=== PATIENT | female | born 2000 | race African-American/Black ===

== ENCOUNTER → 2021-05-16 09:38 | Outpatient (BNVA) | payer OTHER, SELFPAY | PROVIDERS: Visit Provider Nurse Practitioner Family ==

== ENCOUNTER → 2021-08-07 08:50 | Outpatient (BNVA) | payer OTHER, SELFPAY | PROVIDERS: PCP Internal Medicine; Visit Provider Psychiatry & Neurology Neurology | DX: G43.709 Chronic migraine without aura, not intractable, without status migrainosus (principal); G44.219 Episodic tension-type headache, not intractable; I95.1 Orthostatic hypotension | CPT/HCPCS: 64615; J0585 ==

== ENCOUNTER → 2022-02-11 11:20 | Outpatient (BNVA) | payer OTHER, SELFPAY | PROVIDERS: PCP Internal Medicine; Visit Provider Psychiatry & Neurology Neurology | DX: G43.119 Migraine with aura, intractable, without status migrainosus (principal); I95.1 Orthostatic hypotension | CPT/HCPCS: 64615; J0585 ==

== ENCOUNTER 2022-10-23 07:25 | Outpatient (AMB) | payer OTHER, SELFPAY ==
--- NOTE | 2022-10-23 07:27 | MHC.OFFVIS ---
Intake Vital Signs 10/23/22 07:32 Weight 153 lb BP 122/82 Blood Pressure Location Rt brachial Position Sitting Pulse 87 Pulse Source Pulse Oximeter Pulse Oximetry (%) 99 Oxygen Delivery Method Room Air Intake Visit Reasons: botox (b&b)-confirmed Intake Note: Botox Injection Exercise Physiologist Certified Required: No Allergies prochlorperazine [From Compazine] Allergy (Severe, Verified 10/23/22 07:29) Anaphylaxis Medication List - Last Reconciled 10/23/22 by Marquita Dumas MD albuterol sulfate 90 mcg/actuation 2 puffs inhalation Q4H PRN diclofenac potassium 50 mg PO DAILY PRN fludrocortisone 0.2 mg PO DAILY fluoxetine 20 mg PO DAILY 90 days fluoxetine 10 mg PO DAILY 90 days lidocaine-prilocaine 2.5-2.5 % grams topical ONCE metoprolol succinate ER 50 mg PO DAILY ondansetron 4 mg PO Q6H PRN 30 days ondansetron HCl 4 mg PO Q8H PRN 30 days HPI HPI Comments History of Present Illness Details ? 22y/o female comes for treatment of migraines with botox after 8 months. She was unable to come to appointments as she was in school at [employer]. she reports increase in headaches/migraines. she has 20 migraine days a month.while she was recieving botox q 3 months her migraine days decreased to 5-8 a month and intensity was milder. she uses tylenol for abortive tretament she tried nurtec and ubrelvy - both helped but her insurance did not cover she did not respond to sumatriptan or rizatriptan ??? Most frequent reported adverse reactions following injection of botox for chronic migraine include neck pain (9%), headache(5%), eyelid ptosis(4%), migraine(4%), muscular weakness(4%), musculuskeletal stiffness(4%), bronchitis(3%), injection site pain (3%), musculoskeletal pain(3%), myalgia(3%), facial paresis(2%), HTN(2%) and muscle spasms(2%) were discussed in detail. ??? Botulinum toxin typeA 200units Lot no [id number] expiration Apr 2025 was diluted with 4 cc of normal saline . ??? Muscles injected- ??? Frontalis 4 sites ??? Procerus 1 site ??? Electric Meter Inspector- 2 sites ??? Temporalis- 8 sites ??? Occipitalis- 6 sites ??? Cervical paraspinals- 4 sites ??? Trapezius- 6 sites- 5 units eachunits each ??? 5 units each in 31 site ??? Total use- 155units ??? Discarded-45units PFSH Medical History Port-A-Cath in place POTS (postural orthostatic tachycardia syndrome) Surgical History No pertinent past surgical history Social History Alcohol intake: never Patient Tobacco Use Status: Never used Tobacco Physical Exam Vital Signs: Last Vital Signs Pulse 87 10/23/22 07:32 BP 122/82 10/23/22 07:32 Pulse Ox 99 10/23/22 07:32 Oxygen Delivery Method Room Air 10/23/22 07:32 Const General: cooperative and no acute distress Orientation/consciousness: patient oriented x3 Neuro General: patient oriented x3 Cognition (Neuro): normal cognition Psych Appearance: grossly normal Mental Status: mental status grossly normal Speech and movement: Normal speech and movement present Affect: normal affect Attitude: cooperative Office Procedures Botulinum toxin Injection 56993 - Migraine Procedure code (CPT) selection complete Office Meds onabotulinumtoxinA Performing Provider: Marquita Dumas MD Administered by: Marquita Dumas MD on 10/23/22 08:10 Dose Route Admin Location Lot Number Expiration Date NDC Cisco Certified Network Professional 155 unit subcut [id number] 04/24/25 8709-6364-23 ALLERGAN/BOTOX Comments: see HPI Assessment & Plan Assessment & Plan (1) Chronic migraine without aura, not intractable, without status migrainosus: Code(s): G43.709 - Chronic migraine without aura, not intractable, without status migrainosus (2) Episodic tension-type headache, not intractable: Code(s): G44.219 - Episodic tension-type headache, not intractable (3) Orthostatic hypotension: Code(s): I95.1 - Orthostatic hypotension (4) Migraine with aura, intractable, without status migrainosus: Code(s): G43.119 - Migraine with aura, intractable, without status migrainosus Plan Patient tolerated the procedure well she will call back with any side effects I will trial her on amitriptyline 10mg qhs and nurtec 75mg as needed for migraine. Orders: Orders AMB Botulinum toxin Injection Today G43.709 - Chronic migraine without aura, not intractable, without status migrainosus Medications: New amitriptyline 10 mg PO BEDTIME 30 tabs 3RF rimegepant (Nurtec ODT) 75 mg PO Q OTHER DAY PRN 14 tabs 3RF migraine headache Coding Level of Care Code Est Pt Level 1 (17392) Diagnoses Chronic migraine without aura, not intractable, without status migrainosus G43.709 Episodic tension-type headache, not intractable G44.219 Orthostatic hypotension I95.1 Migraine with aura, intractable, without status migrainosus G43.119 CPT Codes Botox Injection - Botox 3: 96820 - Migraine ([id number])
[2022-10-23 07:32] VITALS: BP 122/82; PULSE 87; O2SAT 99
== END 2022-10-23 08:09 | disposition home or self-care (01) ==
PROVIDERS: Visit Provider Psychiatry & Neurology Neurology
DX: G43.709 Chronic migraine without aura, not intractable, without status migrainosus (principal); G44.219 Episodic tension-type headache, not intractable; I95.1 Orthostatic hypotension; G43.119 Migraine with aura, intractable, without status migrainosus
CPT/HCPCS: 64615

== ENCOUNTER → 2022-10-23 07:25 | Outpatient (BNVA) | payer OTHER, SELFPAY | PROVIDERS: Visit Provider Psychiatry & Neurology Neurology | DX: G43.719 Chronic migraine without aura, intractable, without status migrainosus (principal); G44.219 Episodic tension-type headache, not intractable; I95.1 Orthostatic hypotension | CPT/HCPCS: 64615; 99211; J0585 ==

== ENCOUNTER 2023-02-10 08:58 | Outpatient (AMB) | payer OTHER, SELFPAY ==
--- NOTE | 2023-02-10 09:02 | A.OFFVIS_ITS ---
Intake Vital Signs 02/10/23 09:04 Height 5 ft 3 in Weight 155 lb BMI 27.5 BP 118/70 Blood Pressure Location Rt brachial Position Sitting Respiration 17 Pulse 90 Pulse Source Pulse Oximeter Pulse Oximetry (%) 97 Oxygen Delivery Method Room Air Intake Visit Reasons: Follow up Intake Note: Pt presents to the office for a 3 month follow up for migraines. Pt reports she was in the ED last week for a really bad migraine. She was given Toradol and an antiemetic and advised to follow up with her neurologist. Trauma Nurse Required: No Allergies prochlorperazine [From Compazine] Allergy (Severe, Verified 02/10/23 09:10) Anaphylaxis Medication List - Last Reconciled 02/10/23 by Marquita Dumas MD albuterol sulfate 90 mcg/actuation 2 puffs inhalation Q4H PRN fludrocortisone 0.2 mg PO DAILY fluoxetine 20 mg PO DAILY 90 days fluoxetine 10 mg PO DAILY 90 days lidocaine-prilocaine 2.5-2.5 % grams topical ONCE metoprolol succinate ER 50 mg PO DAILY ondansetron 4 mg PO Q6H PRN 30 days ondansetron HCl 4 mg PO Q8H PRN 30 days rimegepant (Nurtec ODT) 75 mg PO Q OTHER DAY PRN topiramate 25 mg PO DAILY HPI HPI Comments History of Present Illness Details ? 22y/o female comes for treatment of migraines with botox after 3 months. No migraines for 2 months fater botox but for past 1 month she has been having daily migraines. Nurtec takes the egde off but does not go away . while she was recieving botox q 3 months her migraine days decreased to 5-8 a month and intensity was milder. she uses tylenol for abortive tretament. she did not respond to sumatriptan or rizatriptan she was in ER for episodes of syncope from POTS - Dr. Mak ( [facility]) she also reports new numbness in her legs bilaterally for past 1 week. she always had tingling but feel its worse.she denies back pain . ??? Most frequent reported adverse reactions following injection of botox for chronic migraine include neck pain (9%), headache(5%), eyelid ptosis(4%), migraine(4%), muscular weakness(4%), musculuskeletal stiffness(4%), bronchitis (3%), injection site pain (3%), musculoskeletal pain(3%), myalgia(3%), facial paresis(2%), HTN(2%) and muscle spasms(2%) were discussed in detail. ??? Botulinum toxin typeA 200units Lot no [id number] expiration Apr 2025 was diluted with 4 cc of normal saline . ??? Muscles injected- ??? Frontalis 4 sites ??? Procerus 1 site ??? Ampoule Examiner- 2 sites ??? Temporalis- 8 sites ??? Occipitalis- 6 sites ??? Cervical paraspinals- 4 sites ??? Trapezius- 6 sites- 5 units eachunits each ??? 5 units each in 31 site ??? Total use- 155units ??? Discarded-45units PFSH Medical History POTS (postural orthostatic tachycardia syndrome) Port-A-Cath in place Surgical History No pertinent past surgical history Social History Alcohol intake: never Patient Tobacco Use Status: Never used Tobacco Physical Exam Vital Signs: Last Vital Signs Pulse 90 02/10/23 09:04 Resp 17 02/10/23 09:04 BP 118/70 02/10/23 09:04 Pulse Ox 97 02/10/23 09:04 Oxygen Delivery Method Room Air 02/10/23 09:04 BMI result Body Mass Index 27.5 Const General: cooperative and no acute distress Orientation/consciousness: patient oriented x3 Neuro General: patient oriented x3 Cognition (Neuro): normal cognition Psych Appearance: grossly normal Mental Status: mental status grossly normal Speech and movement: Normal speech and movement present Affect: normal affect Attitude: cooperative Office Procedures Botulinum toxin Injection 78850 - Migraine Procedure code (CPT) selection complete Office Meds onabotulinumtoxinA 200 unit solution for injection Performing Provider: Marquita Dumas MD Performing Location: [facility] [place] [facility] Administered by: Marquita Dumas MD on 02/10/23 09:45 Dose Route Admin Location Dispensed Lot Number Expiration Date [facility] Neurodiagnostic Tech 155 unit subcut 200 units [id number] 04/24/25 0801-8323-91 ALLERGAN/BOTOX Comments: see HPI Assessment & Plan Assessment & Plan (1) Chronic migraine without aura, not intractable, without status migrainosus: Code(s): G43.709 - Chronic migraine without aura, not intractable, without status migrainosus (2) Episodic tension-type headache, not intractable: Code(s): G44.219 - Episodic tension-type headache, not intractable (3) Orthostatic hypotension: Code(s): I95.1 - Orthostatic hypotension (4) Migraine with aura, intractable, without status migrainosus: Code(s): G43.119 - Migraine with aura, intractable, without status migrainosus Plan Patient tolerated the procedure well she will call back with any side effects nurtec 75mg as needed for migraine. Orders: Orders AMB Botulinum toxin Injection Today G43.709 - Chronic migraine without aura, not intractable, without status migrainosus Coding Level of Care Code Est Pt Level 1 (21915) Diagnoses Chronic migraine without aura, not intractable, without status migrainosus G43.709 Episodic tension-type headache, not intractable G44.219 Orthostatic hypotension I95.1 Migraine with aura, intractable, without status migrainosus G43.119 CPT Codes Botox Injection - Botox 3: 16340 - Migraine ([id number])
[2023-02-10 09:04] VITALS: BP 118/70; PULSE 90; RESP 17; O2SAT 97; BMI 27.5
== END 2023-02-10 09:34 | disposition home or self-care (01) ==
PROVIDERS: PCP Internal Medicine; Visit Provider Psychiatry & Neurology Neurology
DX: G43.709 Chronic migraine without aura, not intractable, without status migrainosus (principal)
CPT/HCPCS: 64615

== ENCOUNTER → 2023-02-10 08:58 | Outpatient (BNVA) | payer OTHER, SELFPAY | PROVIDERS: PCP Internal Medicine; Visit Provider Psychiatry & Neurology Neurology | DX: G43.709 Chronic migraine without aura, not intractable, without status migrainosus (principal); G43.119 Migraine with aura, intractable, without status migrainosus; G44.219 Episodic tension-type headache, not intractable; I95.1 Orthostatic hypotension | CPT/HCPCS: 64615; 99211; J0585 ==

== ENCOUNTER 2023-08-27 07:54 | Outpatient (AMB) | payer OTHER, SELFPAY ==
--- NOTE | 2023-08-27 07:59 | MHC.OFFVIS ---
Vital Signs 08/27/23 08:00 Height 5 ft 3 in Weight 156 lb 6 oz BMI 27.7 BP 128/70 Blood Pressure Location Rt brachial Position Sitting Respiration 16 Pulse 87 Pulse Source Pulse Oximeter Pulse Oximetry (%) 100 Oxygen Delivery Method Room Air Intake Visit Reasons: Botox - Confirmed Intake Note: Pt presents to the office for Botox injections. Bench Patternmaker Metal Required: No Allergies prochlorperazine [From Compazine] Allergy (Severe, Verified 08/27/23 07:59) Anaphylaxis Medication List - Last Reconciled 08/27/23 by Marquita Dumas MD albuterol sulfate 90 mcg/actuation 2 puffs inhalation Q4H PRN fludrocortisone 0.2 mg PO DAILY fluoxetine 20 mg PO DAILY 90 days fluoxetine 10 mg PO DAILY 90 days gabapentin 300 mg PO TID lidocaine-prilocaine 2.5-2.5 % grams topical ONCE metoprolol succinate ER 50 mg PO DAILY ondansetron 4 mg PO Q6H PRN 30 days ondansetron HCl 4 mg PO Q8H PRN 30 days rimegepant (Nurtec ODT) 75 mg PO Q OTHER DAY PRN topiramate 25 mg PO DAILY HPI Comments Details: ? 23y/o female comes for treatment of migraines with botox after 6 months. she had issues with billing so missed her last appointment. she has been doing well with botox.Her headaches decreased to 0-1/month for 3 mths after botox. ??? Most frequent reported adverse reactions following injection of botox for chronic migraine include neck pain (9%), headache(5%), eyelid ptosis(4%), migraine(4%), muscular weakness(4%), musculuskeletal stiffness(4%), bronchitis(3%), injection site pain (3%), musculoskeletal pain(3%), myalgia(3%), facial paresis(2%), HTN(2%) and muscle spasms(2%) were discussed in detail. ??? Botulinum toxin typeA 200units Lot no [id number] expiration August 2025 was diluted with 4 cc of normal saline . ??? Muscles injected- ??? Frontalis 4 sites ??? Procerus 1 site ??? Poacher Wringer Operator- 2 sites ??? Temporalis- 8 sites ??? Occipitalis- 6 sites ??? Cervical paraspinals- 4 sites ??? Trapezius- 6 sites- 5 units eachunits each ??? 5 units each in 31 site ??? Total use- 155units ??? Discarded-45units PFSH Medical History POTS (postural orthostatic tachycardia syndrome) Port-A-Cath in place Surgical History No pertinent past surgical history Social History Alcohol intake: never Patient Tobacco Use Status: Never used Tobacco Physical Exam Vital Signs: Last Vital Signs Pulse 87 08/27/23 08:00 Resp 16 08/27/23 08:00 BP 128/70 08/27/23 08:00 Pulse Ox 100 08/27/23 08:00 Oxygen Delivery Method Room Air 08/27/23 08:00 BMI result Body Mass Index 27.7 Const General: cooperative and no acute distress Orientation/consciousness: patient oriented x3 Neuro General: patient oriented x3 Cognition (Neuro): normal cognition Psych Appearance: grossly normal Mental Status: mental status grossly normal Speech and movement: Normal speech and movement present Affect: normal affect Attitude: cooperative Office Procedures Botulinum toxin Injection 17770 - Migraine Procedure code (CPT) selection complete Office Meds onabotulinumtoxinA 200 unit solution for injection Performing Provider: Marquita Dumas MD [place]forming [place] [facility] [place] [facility] Administered by: Marquita Dumas MD on 08/27/23 08:27 Dose Route Admin Location Dispensed Lot Number Expiration Date [facility] Cuff Presser 155 unit subcut 200 units [id number] 08/22/25 9848-8280-24 ALLERGAN/BOTOX Comments: see HPI Assessment & Plan Assessment & Plan (1) Chronic migraine without aura, not intractable, without status migrainosus: Code(s): G43.709 - Chronic migraine without aura, not intractable, without status migrainosus Category: Medical (2) Episodic tension-type headache, not intractable: Code(s): G44.219 - Episodic tension-type headache, not intractable Category: Medical (3) Orthostatic hypotension: Code(s): I95.1 - Orthostatic hypotension Category: Medical (4) Migraine with aura, intractable, without status migrainosus: Code(s): G43.119 - Migraine with aura, intractable, without status migrainosus Category: Medical Plan Patient tolerated the procedure well she will call back with any side effects nurtec 75mg as needed for migraine. Orders: Orders AMB Botulinum toxin Injection Today G43.709 - Chronic migraine without aura, not intractable, without status migrainosus Medications: New onabotulinumtoxinA 200 units subcut ONCE 1 ea 0RF migraine G43.709 - Chronic migraine without aura, not intractable, without status migrainosus Coding Level of Care Code Est Pt Level 1 (84252) Diagnoses Chronic migraine without aura, not intractable, without status migrainosus G43.709 Episodic tension-type headache, not intractable G44.219 Orthostatic hypotension I95.1 Migraine with aura, intractable, without status migrainosus G43.119 CPT Codes Botox Injection - Botox 3: 67595 - Migraine ([id number])
[2023-08-27 08:00] VITALS: BP 128/70; PULSE 87; RESP 16; O2SAT 100; BMI 27.7
== END 2023-08-27 08:24 | disposition home or self-care (01) ==
PROVIDERS: PCP Internal Medicine; Visit Provider Psychiatry & Neurology Neurology
DX: G43.E19 Chronic migraine with aura, intractable, without status migrainosus (principal)
CPT/HCPCS: 64615

== ENCOUNTER → 2023-08-27 07:54 | Outpatient (BNVA) | payer OTHER, SELFPAY | PROVIDERS: PCP Internal Medicine; Visit Provider Psychiatry & Neurology Neurology | DX: G43.709 Chronic migraine without aura, not intractable, without status migrainosus (principal); G44.219 Episodic tension-type headache, not intractable; I95.1 Orthostatic hypotension | CPT/HCPCS: 64615; 99211; J0585 ==

== ENCOUNTER 2024-02-04 13:25 | Outpatient (AMB) | payer OTHER, SELFPAY ==
--- NOTE | 2024-02-04 13:30 | A.OFFVIS_ITS ---
Intake Visit Reasons: Botox Intake Note: Patient presents for botox Allergies prochlorperazine [From Compazine] Allergy (Severe, Verified 02/04/24 13:30) Anaphylaxis Medication List - Last Reconciled 02/04/24 by Marquita Dumas MD albuterol sulfate 90 mcg/actuation 2 puffs inhalation Q4H PRN dextroamphetamine-amphetamine 5 mg (Adderall) 5 mg PO DAILY fludrocortisone 0.2 mg PO DAILY fluoxetine 20 mg PO DAILY 90 days fluoxetine 10 mg PO DAILY 90 days gabapentin 300 mg PO TID lidocaine-prilocaine 2.5-2.5 % grams topical ONCE metoprolol succinate ER 50 mg PO DAILY ondansetron 4 mg PO Q6H PRN 30 days ondansetron HCl 4 mg PO Q8H PRN 30 days rimegepant (Nurtec ODT) 75 mg PO Q OTHER DAY PRN topiramate 25 mg PO DAILY HPI Comments Details: ? 23y/o female comes for treatment of migraines with botox after 6 months. she had issues with billing so missed her last appointment. she has been doing well with botox.Her headaches decreased to 0-1/month for 3 mths after botox. ??? Most frequent reported adverse reactions following injection of botox for chronic migraine include neck pain (9%), headache(5%), eyelid ptosis(4%), migraine(4%), muscular weakness(4%), musculuskeletal stiffness(4%), bronchitis(3%), injection site pain (3%), musculoskeletal pain(3%), myalgia(3%), facial paresis(2%), HTN(2%) and muscle spasms(2%) were discussed in detail. ??? Botulinum toxin typeA 200units Lot no [id number] expiration May 2026 was diluted with 4 cc of normal saline . ??? Muscles injected- ??? Frontalis 4 sites ??? Procerus 1 site ??? Bread Baker- 2 sites ??? Temporalis- 8 sites ??? Occipitalis- 6 sites ??? Cervical paraspinals- 4 sites ??? Trapezius- 6 sites- 5 units eachunits each ??? 5 units each in 31 site ??? Total use- 155units ??? Discarded-45units [facility] Medical History POTS (postural orthostatic tachycardia syndrome) Port-A-Cath in place Surgical History No pertinent past surgical history Social History Alcohol intake: never Patient Tobacco Use Status: Never used Tobacco Physical Exam Const General: cooperative and no acute distress Orientation/consciousness: patient oriented x3 Neuro General: patient oriented x3 Cognition (Neuro): normal cognition Psych Appearance: grossly normal Mental Status: mental status grossly normal Speech and movement: Normal speech and movement present Affect: normal affect Attitude: cooperative Office Procedures Botulinum toxin Injection 09692 - Migraine Procedure code (CPT) selection complete Office Meds onabotulinumtoxinA 200 unit solution for injection Performing Provider: Marquita Dumas MD Performing Location: [facility] [place] [facility] Administered by: Marquita Dumas MD on 02/04/24 15:25 Dose Route Admin Location Dispensed Lot Number Expiration Date [facility] Clinical Audiologist 155 unit subcut 200 units [id number] 05/22/26 8108-8958-32 ALLERGAN/BOTOX Comments: see hpi Assessment & Plan Assessment & Plan (1) Chronic migraine without aura, not intractable, without status migrainosus: Code(s): G43.709 - Chronic migraine without aura, not intractable, without status migrainosus Category: Medical (2) Episodic tension-type headache, not intractable: Code(s): G44.219 - Episodic tension-type headache, not intractable Category: Medical (3) Orthostatic hypotension: Code(s): I95.1 - Orthostatic hypotension Category: Medical (4) Migraine with aura, intractable, without status migrainosus: Code(s): G43.119 - Migraine with aura, intractable, without status migrainosus Category: Medical Plan Patient tolerated the procedure well she will call back with any side effects nurtec 75mg as needed for migraine. Orders: Orders AMB Botulinum toxin Injection Today G43.119 - Migraine with aura, intractable, without status migrainosus Medications: New onabotulinumtoxinA 200 units subcut ONCE 1 ea 0RF Migraine G43.119 - Migraine with aura, intractable, without status migrainosus Coding Level of Care Code Est Pt Level 1 (96687) Diagnoses Chronic migraine without aura, not intractable, without status migrainosus G43.709 Episodic tension-type headache, not intractable G44.219 Orthostatic hypotension I95.1 Migraine with aura, intractable, without status migrainosus G43.119 CPT Codes Botox Injection - Botox 3: 25949 - Migraine ([id number])
== END 2024-02-04 14:01 | disposition home or self-care (01) ==
PROVIDERS: PCP Internal Medicine; Visit Provider Psychiatry & Neurology Neurology
DX: G43.E09 Chronic migraine with aura, not intractable, without status migrainosus (principal)
CPT/HCPCS: 64615

== ENCOUNTER → 2024-02-04 13:25 | Outpatient (BNVA) | payer OTHER, SELFPAY | PROVIDERS: PCP Internal Medicine; Visit Provider Psychiatry & Neurology Neurology | DX: G43.E19 Chronic migraine with aura, intractable, without status migrainosus (principal); G44.219 Episodic tension-type headache, not intractable; I95.1 Orthostatic hypotension | CPT/HCPCS: 64615; 99211; J0585 ==

== ENCOUNTER 2024-06-01 08:21 | Outpatient (AMB) | payer OTHER, SELFPAY ==
--- NOTE | 2024-06-01 08:21 | A.OFFVIS_ITS ---
Vital Signs 06/01/24 08:22 Height 5 ft 3 in Weight 143 lb BMI 25.3 Pulse 82 Pulse Source Pulse Oximeter Pulse Oximetry (%) 97 Oxygen Delivery Method Room Air Intake Visit Reasons: Botox Intake Note: patient here for botox injection. Practice supplied Allergies prochlorperazine [From Compazine] Allergy (Severe, Verified 06/01/24 08:25) Anaphylaxis Medication List - Last Reconciled 06/01/24 by Marquita Dumas MD albuterol sulfate 90 mcg/actuation 2 puffs inhalation Q4H PRN dextroamphetamine-amphetamine 5 mg (Adderall) 5 mg PO DAILY fludrocortisone 0.2 mg PO DAILY fluoxetine 20 mg PO DAILY 90 days fluoxetine 10 mg PO DAILY 90 days gabapentin 300 mg PO TID lidocaine-prilocaine 2.5-2.5 % grams topical ONCE metoprolol succinate ER 50 mg PO DAILY ondansetron 4 mg PO Q6H PRN 30 days ondansetron HCl 4 mg PO Q8H PRN 30 days rimegepant (Nurtec ODT) 75 mg PO Q OTHER DAY PRN topiramate 25 mg PO DAILY HPI Comments Details: ? 24y/o female comes for treatment of migraines with botox after 6 months. she had issues with billing so missed her last appointment. she has been doing well with botox.Her headaches decreased to 0-1/month for 3 mths after botox. ??? Most frequent reported adverse reactions following injection of botox for chronic migraine include neck pain (9%), headache(5%), eyelid ptosis(4%), migraine(4%), muscular weakness(4%), musculuskeletal stiffness(4%), bronchitis(3%), injection site pain (3%), musculoskeletal pain(3%), myalgia(3%), facial paresis(2%), HTN(2%) and muscle spasms(2%) were discussed in detail. ??? Botulinum toxin typeA 200units Lot no [id number] expiration June 2026 was diluted with 4 cc of normal saline . ??? Muscles injected- ??? Frontalis 4 sites ??? Procerus 1 site ??? Clip On Sunglasses Assembler- 2 sites ??? Temporalis- 8 sites ??? Occipitalis- 6 sites ??? Cervical paraspinals- 4 sites ??? Trapezius- 6 sites- 5 units eachunits each ??? 5 units each in 31 site ??? Total use- 155units ??? Discarded-45units PFSH Medical History POTS (postural orthostatic tachycardia syndrome) Port-A-Cath in place Surgical History No pertinent past surgical history Social History Alcohol intake: never Patient Tobacco Use Status: Never used Tobacco Physical Exam Vital Signs: Last Vital Signs Pulse 82 06/01/24 08:22 Pulse Ox 97 06/01/24 08:22 Oxygen Delivery Method Room Air 06/01/24 08:22 BMI result Body Mass Index 25.3 Const General: cooperative and no acute distress Orientation/consciousness: patient oriented x3 Neuro General: patient oriented x3 Cognition (Neuro): normal cognition Psych Appearance: grossly normal Mental Status: mental status grossly normal Speech and movement: Normal speech and movement present Affect: normal affect Attitude: cooperative Office Procedures Botulinum toxin Injection 57276 - Migraine Procedure code (CPT) selection complete Office Meds onabotulinumtoxinA 200 unit solution for injection Performing Provider: Marquita Dumas MD Performing [place] [facility] [place] [facility] Administered by: Marquita Dumas MD on 06/01/24 08:47 Dose Route Admin Location Dispensed Lot Number Expiration Date [facility] Car Construction Superintendent 155 unit subcut 200 units [id number] ALLERGAN/BOTOX Comments: see HPI Assessment & Plan Assessment & Plan (1) Chronic migraine without aura, not intractable, without status migrainosus: Code(s): G43.709 - Chronic migraine without aura, not intractable, without status migrainosus Category: Medical (2) Episodic tension-type headache, not intractable: Code(s): G44.219 - Episodic tension-type headache, not intractable Category: Medical (3) Orthostatic hypotension: Code(s): I95.1 - Orthostatic hypotension Category: Medical (4) Migraine with aura, intractable, without status migrainosus: Code(s): G43.119 - Migraine with aura, intractable, without status migrainosus Category: Medical Plan Patient tolerated the procedure well she will call back with any side effects nurtec 75mg as needed for migraine. Orders: Orders AMB Botulinum toxin Injection Today G43.709 - Chronic migraine without aura, not intractable, without status migrainosus Medications: New onabotulinumtoxinA 200 units subcut ONCE 1 ea 0RF Migraines G43.709 - Chronic migraine without aura, not intractable, without status migrainosus Refilled ondansetron 4 mg PO Q6H 30 days PRN 30 tabs 4RF for nausea/vomiting Coding Level of Care Code Est Pt Level 1 (69721) Diagnoses Chronic migraine without aura, not intractable, without status migrainosus G43.709 Episodic tension-type headache, not intractable G44.219 Orthostatic hypotension I95.1 Migraine with aura, intractable, without status migrainosus G43.119 CPT Codes Botox Injection - Botox 3: 13407 - Migraine ([id number])
[2024-06-01 08:22] VITALS: PULSE 82; O2SAT 97; BMI 25.3
--- OUTSIDE RECORDS SUMMARY | 2024-06-01 08:54 | XMS_ITS | Clinical Summary ---
Author Organization [facility] Address [address] [place] [address] Care Team Providers Care Mixer Driver Name Role Phone Unavailable Primary Care Provider Unavailabl e Source Comments PLEASE NOTE, if this patient is a minor, it may be UNLAWFUL to discuss sensitive information that is contained in these records (such as FAMILY PLANNING, MENTAL HEALTH or SUBSTANCE ABUSE) with the minor patient's parent or other person without the patient's specific authorization.[facility] Immunizations Name Administration Dates Next Due Moderna COVID-19 Vaccine, re d cap blue label, 12+ Primary Series 07/04/2020,06/06/2020 Social History Tobacco Use Types Packs/Day Years Used Date Smoking Tobacco: Never Assessed Social Connections Answer Date Recorded Social Connections and Isolation 0 06/06/2020 Financial Resource Strain Answer Date R ecorded Financial Resource Strain 0 2020 Stress Answer Date Recorded Stress 0 06/06/2020 Physical Activity Answer Date Recorded Physical Activity 0 06/06/2020 Food Insecurity Answer Date Recorded Food 0 06/06/2020 Transportation Needs Answer Date Record ed Transportation 0 06/06/2020 Housing Stability Answer Date Recorded Housing 0 06/06/2020 Safety and Environment Answer Date Cody rded Safety 0 06/06/2020 Utilities Answer Date Recorded Utilities 0 06/06/2020 Employment Answer Date Recorded Employment 0 06/06/2020 Comments Unknown Sex and Gender Information Value Date Recorded Sex Assigned at Not on file Legal Sex Female 11:46 AM PST Gender Identity Not on file Sexual Orientation Not on file Plan of Treatment Health Maintenance Due Date Last Done Comments HPV Screening 2000 Hepatitis C Screening 2000 Pap + HPV 2000 Tobacco Screening 2000 Chlamydia Screening 2013 Gonorrhea Screening 2013 Imm-HPV (2 - 2-dose series) 01/22/2014 07/22/2013 HIV Screening 2015 Relationship Safety Screening/Counseling 2015 Annual Preventive Care Visit 2018 Hypertension Screening (#1) 2018 Cervical Cancer Screening 2021 Pap Smear 2021 Imm-DTaP/Tdap/Td (7 - Td or Tdap) 06/24/2021 06/25/2011, 06/13/2004, 10/05/2001, Additional history exists [id number] ( season) 2023 021, 06/06/2020 Imm-Influenza (#1) 2023 01/31/2020, 1 , 04/23/2013, Additional history exists Alcohol and Drug Screen 03/24/2024 Depression Annual Screen 03/24/2024 Imm-Hepatitis B Completed 01/20/2001, 04/24, 2000 Imm-Varicella Completed 07/17/2009, 04/06/2001 Cervical Ablation/Cold-Knife Conization Discontinued Cervical Cryotherapy Discontinued Colposcopy Discontinued Endometrial Biopsy Discontinued Excision/Leep Discontinued HPV Genotyping Discontinued Vaginal Pap Discontinued Vulvoscopy Discontinued Insurance [facility] ([employer] [place]) Member Subscriber Plan / Payer (Ef fective 2020-Present) Name:Aye Hill Relation to Subscriber:Self Name:Aye Hill Payer ID:[id number] Type:Indemnity Address: [address] [place] [address]
--- OUTSIDE RECORDS SUMMARY | 2024-06-01 08:54 | XMS_ITS | Referral Summary ---
Author Organization [facility] Address [address] [place] [address] Care Team Providers Care Home Comfort Advisor Name Role Phone Jamarcus Elizabeth MD Primary Care Provider +1 [phone] Allergies Active Allergy Reactions Criticality Noted Date Comments Prochlorperazine Respiratory Distress High 2 Medications albuterol (PROAIR HFA,VENTOLIN HFA) 90 mcg inhaler Inhale 2 puffs by mouth every 4 hours as needed. 2 Active amoxicillin-pot clavulanate (AUGMENTIN) 400-57 mg/5 mL suspension SMARTSI Milliliter(s) By Mouth Every 12 Hours 2 Active butalbital-acetami nophen-caffeine (FIORICET) 50-325-40 mg tablet Take 1 tablet by mouth daily as needed. 1 Active diclofenac (CATAFLAM) 50 mg tablet Take 50 mg by mouth every 8 hours as needed. 2 Active fludrocortisone (FLORINEF) 0.1 mg tablet Take 0.2 mg by mouth once a day. 2 Active FLUoxetine (PROzac) 20 mg capsule Take 30 mg by mouth. Active gabapentin (NEURONTIN) 100 mg capsule Take 100 mg by mouth 3 times a day. 2 Active hydrOXYzine HCL (ATARAX) 10 mg tablet Take 10 mg by mouth every 8 hours as needed. 1 Active lidocaine-prilocai ne (EMLA) cream Apply topically to the affected area once. 2 Active methylPREDNISolone (MEDROL DOSEPACK) 4 mg tablet TAKE 6 TABLETS ON DAY 1 DIRECTED ON PACKAGE AND DECREASE BY 1 TAB EACH DAY FOR A TOTAL OF 6 DAYS 2 Active ondansetron (ZOFRAN ODT) 4 mg disintegrating tablet Dissolve 4 mg in the mouth every 8 hours as needed. 2 Active topiramate (TOPAMAX) 100 mg tablet Take 100 mg by mouth. 1 Active Social History Tobacco Use Types Packs/Day Years Used Date Smoking Tobacco: Never Smokeless Tobacco: Never Alcohol Use Standard Drinks/Week Comments Yes 2 (1 standard drink = 0.6 oz pur e alcohol) Comments Unknown Sex and Gender Information Value Date Recorded Sex Assigned at Female 10/07/2021 5:08 PM EDT Legal Sex Female 4:27 PM EDT Gender Identity Female 10/07/2021 5:08 PM EDT Sexual Orientation Straight 10/07/2021 5: 08 PM EDT Last Filed Vital Signs Vital Sign Reading Time Taken Comments Blood Pressure 106/69 10/08/2021 2:50 PM EDT Pulse 77 10/08/2021 2:47 PM EDT Temperature - - Respiratory Rate 16 10/08/2021 2:47 PM EDT Oxygen Saturation 100% 10/08/2021 2:47 PM EDT Inhaled Oxygen Concentration - - Weight 65.8 kg (145 lb) 10/08/2021 2:47 PM EDT Height 160 cm (5' 3 ) 10/08/2021 2:47 PM EDT Body Mass Index 25.69 10/08/2021 2:47 PM EDT Plan of Treatment Not on file Insurance [facility] Care Teams Home Comfort Advisor Relationship Specialty Start Date End Date Jamarcus Elizabeth MD [address] [place] [id number] PCP - General 08/29/21
--- OUTSIDE RECORDS SUMMARY | 2024-06-01 08:54 | XMS_ITS | Clinical Summary ---
Author Organization Patient Business [facility] Address [address] [place] [address] Care Team Providers Care Senior Cost Estimator Name Role Phone Jamarcus Elizabeth MD Primary Care Provider +1 [phone] Medications metoprolol succinate (TOPROL-XL) 50 mg 24 hr tablet TAKE 1 TABLET BY MOUTH EVERY DAY 90 tablet 05/31/2024 Active Encounters Date Type Department Care Team Description 06/01/2024 Telephone Internal Medicine - [facility] [address] [place], [place] [phone] Jamarcus Elizabeth MD provider call back 05/31/2024 Telephone Internal Medicine - [facility] [address] [place], [place] [phone] Jamarcus Elizabeth MD Labs Only from Last 3 Months Immunizations Name Administration Dates Next Due Moderna SARS-CoV-2 COVID-19, mRNA, LNP-S, preservative free 07/04/2020,06/06/2020 Medical History Medical History Date Comments Unspecified asthma(493.90) DX:Un specified asthma(493.90) Acute pharyngitis DX:Acute phary ngitis Acute upper respiratory infe ctions of unspecified site DX:Acute upper respiratory i nfections of unspecified site Twin, mate liveborn, born in hospital, delivered without mention of delivery DX:Twin, mate liveborn, born in hospital, delivered without mention of delivery Anxiety and depression 08/14/2020 DX:Anxiet y and depression Migraine 08/14/2020 DX:Migraine Irritable bowel syndrome 08/14/2020 DX:Irri table bowel syndrome Epistaxis 10/17/2020 DX:Epistaxis Family History Medical History Relation Name Comments Colon cancer Other MGGM Blindness Neg Hx Cataracts Neg Hx Glaucoma Neg Hx Macular degeneration Neg Hx Strabismus Neg Hx Relation Name Status Comments Other Social History Tobacco Use Types Packs/Day Years Used Date Smoking Tobacco: Never Smokeless Tobacco: Never Alcohol Use Standard Drinks/Week Comments Yes 0 (1 standard drink = 0.6 oz pur e alcohol) Comments Unknown Sex and Gender Information Value Date Recorded Sex Assigned at Female 06/27/2020 8:06 AM EDT Legal Sex Female 8:01 AM EDT Gender Identity Female 06/27/2020 8:06 AM EDT Sexual Orientation Straight 06/27/2020 8: 06 AM EDT Obstetrics History Last Filed Vital Signs Vital Sign Reading Time Taken Comments Blood Pressure 90/70 08/27/2023 10:34 AM EDT Sitting L Arm Pulse 72 08/27/2023 10:34 AM EDT Temperature - - Respiratory Rate - - Oxygen Saturation - - Inhaled Oxygen Concentration - - Weight 71 kg (156 lb 8 oz) 08/27/2023 1 0:34 AM EDT Height 160 cm (5' 3 ) 08/27/2023 10:34 AM EDT Body Mass Index 27.72 08/27/2023 10:34 AM EDT Plan of Treatment Upcoming Encounters Date Type Department Care Team (Late st Contact Info) Description 06/02/2024 10:30 AM EDT Office Visit Internal Medicine - [facility] [address] [place], [place] [phone] Shraddha Spears MD [address], [place] Health Maintenance Due Date Last Done Comments Gonorrhea/Chlamydia Screening 2000 Pneumococcal Vaccine: Pediatrics (0 to 5 Years) and At-Risk Patients (6 to 64 Years) (1 of 1 - PPSV23) 2006 04/06/2001, 2000, 2000, Additional history exists HPV Vaccines (2 - 2-dose series) 01/22/2014 07/22/2013 Depression Screening 06/27/2020 HIV Screening 06/27/2020 Hepatitis C Screening 06/27/2020 Social Influencers of Health Screening 06/27/2020 Cervical Cancer Screening: Pap Smear 2021 COVID-19 Vaccine ( season) 2023 07/04/2020, 06/06/2020 Influenza Vaccine (#1) 2023 , 03/22/2019, 04/23/2013, Additional history exists DTaP,Tdap,and Td Vaccines (8 - Td or Tdap) 10/09/2033 10/10/2023, 06/25/2011, 06/13/2004, Additional history exists Hepatitis B Vaccines Completed 01/20/2001, 2000, 2000 HIB Vaccines Completed 07/06/2001, 06/22, 2000, Additional history exists IPV Vaccines Completed 06/13/2004, 06/22, 01/20/2001, Additional history exists MMR Vaccines Completed 06/13/2004, 07/06/2001 Varicella Vaccines Completed 07/17/2009, 04/06/2001 Meningococcal ACWY Vaccine Completed 09/02/2018, Hepatitis A Vaccines Aged Out No long er eligible based on patient's age to complete this topic Meningococcal B Vacine Aged Out No lo nger eligible based on patient's age to complete this topic RSV Immunization Patients Under 20 months Aged Out No longer eligible based on patient's age to complete this topic Insurance [employer] Care Teams Senior Cost Estimator Relationship Specialty Start Date End Date Jamarcus Elizabeth MD [address] [place] [id number] PCP - General Internal Medicine 12/23/19
--- OUTSIDE RECORDS SUMMARY | 2024-06-01 08:54 | XMS_ITS ---
Author Name [facility] Organization Unknown Assessment and Plan ID Update Date Source Alert Text [facility] - [id number] 03/29/2021 [facility] [id number] COVID Vaccination: This patient has received the [email or web address], COVID-19 vaccination on 03/29/2021 with lot number [id number] at [address] Encounters Encounter Type Encounter Reason Primary Diagnosis Location Date Emergency COUGH/WHEEZING COUGH, UNSPECIFIED [facility] 05/09/2022 Ambulatory [facility] 02/12/2022 Ambulatory FU [facility] 02/12/2022 Ambulatory [id number] [facility] 12/04/2021 Ambulatory [facility] 11/27/2021 Ambulatory CON [facility] 11/27/2021 Emergency [facility] 11/07/2021 Inpatient [facility] 07/01/2021 Ambulatory [facility] 05/08/2021 Ambulatory MIGRAINE/HEAD PAIN [facility] 05/08/2021 Inpatient [facility] 04/16/2021 Emergency [facility] 04/15/2021 Ambulatory [facility] 02/12/2021 Emergency [facility] 01/03/2021 Emergency HEART PROBLEM [facility] 12/26/2020
--- OUTSIDE RECORDS SUMMARY | 2024-06-01 08:54 | XMS_ITS | Clinical Summary ---
Author Organization [facility] Address [address] [place] [address] Care Team Providers Care Embedded Case Manager Name Role Phone Jamarcus Elizabeth MD Primary Care Provider +1 -[phone] Allergies Active Allergy Reactions Criticality Noted Date [...] 10/08/2021 2:47 PM EDT Plan of Treatment Health Maintenance Due Date Last Done Comments HIV Screening 2000 Hepatitis C Screening 2000 Pap Smear 2000 Pneumococcal Vaccine: Pediat anaid (0-5 Years) and At-Risk Patients (6-50 Years) (1 of 1 - PPSV23) 2006 04/06/2001, 2000, 2000, Additional history exists HPV Vaccines (2 - 2-dose series) 01/22/2014 07/23/19 14 Chlamydia Screening 2016 DTaP,Tdap,and Td Vaccines (7 - Td or Tdap) 06/24/2021 06/25/2011, 06/13/2004, 10/05/2001, Additional history exists COVID-19 Vaccine (2023-2 5 season) 2023 07/04/2020, 06/06/2020 Influenza Vaccine (#1) 2023 , 03/22/2019, 04/23/2013, Additional history exists Alcohol/Substance Use Screening 03/24/2024 Depression Screening and Follow-Up 03/24/2024 Social Drivers of Health Iva ual Screening 03/24/2024 RSV Vaccine (60+ years old a nd patients) (1 - 1-dose 75+ series) 2075 Hepatitis B Vaccines Completed 01/20/2001, 2000, 2000 Varicella Vaccines Completed 07/17/2009, 04/06/2001 Insurance [facility] Care Teams Embedded Case Manager Relationship Specialty Start Date End Date Jamarcus Elizabeth MD [address] [place] [address] PCP - General 08/29/21
--- OUTSIDE RECORDS SUMMARY | 2024-06-01 08:54 | XMS_ITS | Encounter Summary ---
Author Organization [facility] Address [address] [place] [address] Care Team Providers Care Industrial Millwright Name Role Phone Jamarcus Elizabeth MD Primary Care Provider +1 [phone] Reason for Visit * Reason Onset Date Comments Labs Only 05/31/2024 Encounter Details Date Type Department Care Team (Late st Contact Info) Description 05/31/2024 [facility] [address] [place] [phone] Jamarcus Elizabeth MD [address] [place] [phone] Labs Only Social History Tobacco Use Types Packs/Day Years [...] Orientation Straight 06/27/2020 8: 06 AM EDT documented as of this encounter Progress Notes * Ara Urbano RN - 05/31/2024 11:04 AM EDT Spoke with the patient c/o pain radiating down her leg. Went to an [facility] in [facility]. Was told itmay be nerve entrapment and to follow with PCP's office. Appt made for tomorrow * Trevon Rasmussen - 05/31/2024 9:25 AM EDT Pt states she wants to get advanced imaging for her left leg nerve pain. Tel #: [phone]. documented in this encounter Plan of Treatment Upcoming Encounters Date Type Department Care Team (Late st Contact Info) Description 06/02/2024 10:30 AM EDT Office Visit Internal Medicine - [address] [phone] Shraddha Spears MD [address] [place] [address] documented as of this encounter Visit Diagnoses Not on filedocumented in this encounter Care Teams Industrial Millwright Relationship Specialty Start Date End Date Jamarcus Elizabeth MD [address] [place] [phone] PCP - General Internal Medicine 12/23/19 documented as of this encounter
== END 2024-06-01 08:40 | disposition home or self-care (01) ==
LOC: HO.HSMS 08:21
PROVIDERS: PCP Internal Medicine; Visit Provider Psychiatry & Neurology Neurology
DX: G43.709 Chronic migraine without aura, not intractable, without status migrainosus (principal)
CPT/HCPCS: 64615

== ENCOUNTER → 2024-06-01 08:21 | Outpatient (BNVA) | payer OTHER, SELFPAY | PROVIDERS: PCP Internal Medicine; Visit Provider Psychiatry & Neurology Neurology | DX: G43.719 Chronic migraine without aura, intractable, without status migrainosus (principal); G44.219 Episodic tension-type headache, not intractable; I95.1 Orthostatic hypotension | CPT/HCPCS: 64615; 99211; J0585 ==

== ENCOUNTER 2024-10-26 07:59 | Outpatient (AMB) | payer OTHER, SELFPAY ==
--- OUTSIDE RECORDS SUMMARY | 2024-10-26 08:02 | XMS_ITS | Clinical Summary ---
Author Organization [facility] Address [address] [place] [address] Care Team Providers Care Occupational Therapist Assistants Name Role Phone Unavailable Primary Care Provider Unavailabl e Source Comments PLEASE NOTE, if this patient is a minor, it may be UNLAWFUL to discuss sensitive information that is contained in these records (such as FAMILY PLANNING, MENTAL HEALTH or SUBSTANCE ABUSE) with the minor patient's parent or other person without the patient's specific authorization.[facility] Immunizations Immunization Administration Dates Next Due Moderna COVID-19 Vaccine, [...] Health Maintenance Due Date Last Done Comments Anxiety Screening 2000 HPV Screening 2000 Hepatitis C Screening 2000 Pap + HPV 2000 Tobacco Screening 2000 Chlamydia Screening 2013 Gonorrhea Screening 2013 Imm-HPV (2 - 2-dose series) 01/22/2014 07/22/2013 HIV Screening 2015 Relationship Safety Screening/Counseling 2015 Hypertension Screening (#1) 2018 Cervical Cancer Screening 2021 Pap Smear 2021 Imm-DTaP/Tdap/Td (7 - Td or Tdap) 06/24/2021 06/25/2011, 06/13/2004, 10/05/2001, Additional history exists [id number] ( season) 2023 021, 06/06/2020 Alcohol and Drug Screen 03/24/2024 Depression Annual Screen 03/24/2024 Imm-Influenza (#1) 2024 01/31/2020, 1 , 04/23/2013, Additional history exists Imm-Hepatitis B Completed 01/20/2001, 04/24, 2000 Imm-Varicella Completed 07/17/2009, 04/06/2001 Cervical Ablation/Cold-Knife Conization Discontinued Cervical Cryotherapy Discontinued Colposcopy Discontinued Endometrial Biopsy Discontinued Excision/Leep Discontinued HPV Genotyping Discontinued Vaginal Pap Discontinued Vulvoscopy Discontinued Insurance [facility] ([employer]) Member Subscriber Plan / Payer (Ef fective 2020-Present) Name:Aye Hill Relation to Subscriber:Self Name:Aye Hill Payer ID:[id number] Type:Indemnity Address: [address] [place] [address]
--- OUTSIDE RECORDS SUMMARY | 2024-10-26 08:02 | XMS_ITS | Referral Summary ---
Author Organization [facility] Address [address] [place] [address] Care Team Providers Care Nursing Techn Name Role Phone Jamarcus Elizabeth MD Primary Care Provider +1 -[phone] Allergies Active Allergy Reactions Criticality Noted Date [...] Plan of Treatment Not on file Insurance [facility] Care Teams Nursing Techn Relationship Specialty Start Date End Date Jamarcus Elizabeth MD [address] [place] [phone] PCP - General 08/29/21
--- OUTSIDE RECORDS SUMMARY | 2024-10-26 08:02 | XMS_ITS | Clinical Summary ---
Author Organization [facility] Address [address] [place] [address] Care Team Providers Care Thread Drawer Name Role Phone Jamarcus Elizabeth MD Primary Care Provider +1 [phone] Medications metoprolol succinate (TOPROL-XL) 50 mg 24 hr tablet TAKE 1 TABLET BY MOUTH EVERY DAY 90 tablet 05/31/2024 Active Immunizations Name Administration Dates Next Due Moderna [...] 08/27/2023 10:34 AM EDT Plan of Treatment Health Maintenance Due Date Last Done Comments Gonorrhea/Chlamydia Screening 2000 Pneumococcal Vaccine: Pediatrics (0 to 5 Years) and At-Risk Patients (6 to 49 Years) (1 of 1 - PPSV23) 2006 04/06/2001, 2000, 2000, Additional history exists HPV Vaccines (2 - 2-dose series) 01/22/2014 07/22/2013 HIV Screening 06/27/2020 Hepatitis C Screening 06/27/2020 Social Influencers of Health Screening 06/27/2020 Cervical Cancer Screening: Pap Smear 2021 COVID-19 Vaccine ( season) 2023 07/04/2020, 06/06/2020 Depression Screening 03/24/2024 Influenza Vaccine (#1) 2024 , 03/22/2019, 04/23/2013, Additional history exists DTaP,Tdap,and [...] age to complete this topic Meningococcal B Vaccine Aged Out No l onger eligible based on patient's age to complete this topic RSV Immunization Patients Under 20 months Aged Out No longer eligible based on patient's age to complete this topic Insurance [employer] Care Teams Thread Drawer Relationship Specialty Start Date End Date Jamarcus Elizabeth MD [address] [place] [phone] PCP - General Internal Medicine 12/23/19
--- OUTSIDE RECORDS SUMMARY | 2024-10-26 08:02 | XMS_ITS | Clinical Summary ---
Author Organization [facility] Address [address] [facility] [address] [place] [address] Phone Care Team Providers Care Rotary Drum Dyer Name Role Phone Jamarcus Elizabeth MD Primary Care Provider [phone] [phone] Medications fludrocortisone (FLORINEF) 0.1 mg tablet Take 1 tablet (0.1 mg total) by mouth daily. 90 tablet 3 4 Active midodrine (PROAMATINE) 2.5 MG tablet Take 1 tablet (2.5 mg total) by mouth 3 (three) times a day. 270 tablet 4 Active droxidopa (NORTHERA) 100 mg capsule Take 1 capsule (100 mg total) by mouth 3 (three) times a day. Administer last daily dose 3 hours before bedtime with head of bed elevated. Administer capsule whole, DO NOT open, crush, or chew. 90 capsule 5 4 Active Active Problems No known active problems Encounters Date Type Department Care Team Description 08/10/2024 Telephone [facility] Neurology at [address] [address] Priti Granados [place] from Last 3 Months Social History Tobacco Use Types Packs/Day Years Used Date Smoking Tobacco: Never Assessed Education Answer Date Recorded Are you interested in more education? Not on margarita e 08/01/2023 Are you concerned about learning? Not on file 08/01/2023 No 08/01/2023 No 08/01/2023 Digital Access Answer Date Recorded No 08/01/2023 No 08/01/2023 Reliable internet access at home? Not on file 08/01/2023 Device with a working camera? Not on file Comments Unknown Sex and Gender Information Value Date Recorded Sex Assigned at Not on file Legal Sex Female 9:34 AM EDT Gender Identity Not on file Sexual Orientation Not on file Last Filed Vital Signs Vital Sign Reading Time Taken Comments Blood Pressure 105/67 09/01/2023 9:55 AM EDT Pulse 78 09/01/2023 9:55 AM EDT Temperature - - Respiratory Rate - - Oxygen Saturation - - Inhaled Oxygen Concentration - - Weight 68 kg (150 lb) 09/01/2023 9:55 AM EDT Height 160 cm (5' 3 ) 09/01/2023 9:55 AM EDT Body Mass Index 26.57 09/01/2023 9:55 AM EDT Plan of Treatment Upcoming Encounters Date Type Department Care Team (Late st Contact Info) Description 04/18/2025 2:30 PM EST Procedure visit [facility] [address] [place] [address] Rocío Zelaya PA-C [address] [place] [address] [email or web address] Health Maintenance Due Date Last Done Comments DEPRESSION SCREENING 2012 SMOKING Hx and SMOKELESS TOBACCO SCREENING 2013 HPV VACCINES (1 - 3-dose series) 2015 CHLAMYDIA SCREENING 2016 HEPATITIS C SCREENING 2018 HIV ONE-TIME SCREENING (18-6 5 YEARS) 2018 PAP SMEAR 2021 COVID-19 VACCINE (2023-2 5 season) 2023 Adult Td,Tdap Booster 10/09/2033 10/10/2023 , 06/25/2011 HEPATITIS A VACCINES Aged Out No long er eligible based on patient's age to complete this topic HIB VACCINES Aged Out No longer eligi ble based on patient's age to complete this topic MENINGOCOCCAL VACCINES (ACWY) Aged Out No longer eligible based on patient's age to complete this topic MENINGOCOCCAL VACCINES (B) Aged Out N o longer eligible based on patient's age to complete this topic PNEUMOCOCCAL VACCINES (0-49 years) Aged Out No longer eligible b ased on patient's age to complete this topic Medical Devices Not on file Insurance [facility] Member Subscriber Plan / Payer (Ef fective 2022-Present) Name:Ruben Hillannah Relation to Subscriber:Child Name:LYSSA PIERCE Date of :1970 (Home) Address: [address] [place] [phone] Payer ID:[id number] ([facility]) Type:[facility] Address: [address] [phone] [place] [address] Care Teams Rotary Drum Dyer Relationship Specialty Start Date End Date Jamarcus Elizabeth MD [address] [place] [phone] PCP - General Internal Medicine 08/01/23 Additional Source Comments The information contained in this document represents components of the legal health record. It is not the complete legal health record.[facility]
--- OUTSIDE RECORDS SUMMARY | 2024-10-26 08:02 | XMS_ITS | Clinical Summary ---
Author Organization [facility] Address [facility] [place] [address] Care Team Providers Care Line Out Man Name Role Phone Jamarcus Elizabeth MD Primary Care Provider [phone] Allergies Active Allergy Reactions Criticality Noted Date Comments Prochlorperazine 05/30/2021 Medications fluticasone propionate (FLONASE) 50 mcg/actuation Halfway, SuspensionIndic ations:Acute recurrent maxillary sinusitis 1 spray by Each Nare route daily. Use daily until symptoms have fully resolved 16 g 12/02/2019 Active Active Problems No known active problems Social History Tobacco Use Types Packs/Day Years Used Date Smoking Tobacco: Never Smokeless Tobacco: Never Alcohol Use Standard Drinks/Week Comments Yes 0 (1 standard drink = 0.6 oz pur e alcohol) 3 drinks/week Comments Unknown Sex and Gender Information Value Date Recorded Sex Assigned at Not on file Legal Sex Female 6:37 PM EDT Gender Identity Not on file Sexual Orientation Not on file Last Filed Vital Signs Vital Sign Reading Time Taken Comments Blood Pressure 144/76 05/30/2021 6:00 PM EST Pulse 83 05/30/2021 3:54 PM EST Temperature 36.8 C (98.2 F) 05/30/2021 11:40 AM EST Respiratory Rate 14 05/30/2021 3:54 PM EST Oxygen Saturation 98% 05/30/2021 6:00 PM EST Inhaled Oxygen Concentration - - Weight 59 kg (130 lb) 05/30/2021 11:40 AM EST Height 160 cm (5' 3 ) 05/30/2021 11:40 AM EST Body Mass Index 23.03 05/30/2021 11:40 AM EST Plan of Treatment Health Maintenance Due Date Last Done Comments Chlamydia Screening 2015 HPV vaccine (1 - 3-dose series) 2015 HIV screen 2018 Hepatitis C Screening 2018 Hepatitis B vaccine (0-59 yr s) and Risk (1) 2019 Tetanus/Diphtheria/Pertussis Vaccines (1 - Tdap) 2019 PAP Smear 2021 Covid-19 Vaccine (3 - season) 2023, 06/06/2020 Influenza (Flu) vaccine (1 o f 1 - Influenza standard series) 11/22/[address] [facility] Care Teams Line Out Man Relationship Specialty Start Date End Date Jamarcsu Elizabeth MD [address] [place] [id number] PCP - General Internal Medicine 09/13/20
--- OUTSIDE RECORDS SUMMARY | 2024-10-26 08:02 | XMS_ITS ---
Author Name [facility] Organization Unknown Assessment and Plan ID Update Date Source Alert Text [facility]-[id number] 03/29/2021 [facility] COVID Vacc ination: This patient has received the [employer], [employer], COVID-19 vaccination on 03/29/2021 with lot number [id number] at [address] Encounters Encounter Type Encounter Reason Primary Diagnosis Location Date Emergency COUGH/WHEEZING COUGH, UNSPECIFIED [facility] 05/09/2022 Ambulatory [facility] 02/12/2022 Ambulatory FU [facility] 02/12/2022 Ambulatory I49.8 [facility] 12/04/2021 Ambulatory [facility] 11/27/2021 Ambulatory CON [facility] 11/27/2021 Emergency [facility] 11/07/2021 Inpatient [facility] 07/01/2021 Ambulatory [facility] 05/08/2021 [facility] 05/08/2021 [facility]patient [facility] 04/16/2021 Emergency [facility] 04/15/2021 Ambulatory [facility] 02/12/2021 Emergency [facility] 01/03/2021 Emergency HEART PROBLEM [facility] 12/26/2020 Care Team Organization Name Specialty Phone Email Start Date End Da te [facility] Cecy Webb APRN Primary Care 07/29/2022 [facility] LISA IRELAND Primary Care 05/10/2022 11/10/2023 [facility] 02/12/2022 [facility] Linda Elizabeth Primary Care 01/29/2022 11/10/2023 [facility] 11/27/2021 [facility] 05/08/2021 11/10/2023 [facility] HAYDEE IVAN Primary Care 12/26/2020 [facility] 12/26/202012/26 [facility] LINDA ELIZABETH Primary Care 11/13/2020 11/07/2021 [facility] PHYSICIAN UNAVAILABLE Primary Care 11/13/2020 11/07/2021
[2024-10-26 08:10] VITALS: BP 110/62; PULSE 88; O2SAT 99; BMI 25.3
--- NOTE | 2024-10-26 08:10 | MHC.OFFVIS ---
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: No Allergies prochlorperazine (From Compazine) Allergy (Severe, Verified 10/26/24 08:10) Anaphylaxis Medication List - Last Reconciled 10/26/24 by Marquita Dumas MD albuterol sulfate 90 mcg/actuation 2 puffs inhalation Q4H PRN dextroamphetamine-amphetamine 5 mg (Adderall) 5 mg PO DAILY fludrocortisone 0.2 mg PO DAILY fluoxetine 20 mg PO DAILY 90 days fluoxetine 10 mg PO DAILY 90 days gabapentin 300 mg PO TID lidocaine-prilocaine 2.5-2.5 % grams topical ONCE metoprolol succinate ER 50 mg PO DAILY ondansetron 4 mg PO Q6H PRN 30 days ondansetron HCl 4 mg PO Q8H PRN 30 days rimegepant (Nurtec ODT) 75 mg PO Q OTHER DAY PRN topiramate 25 mg PO DAILY HPI Comments Details: ? 24y/o female comes for treatment of migraines with botox after 6 months. she had issues with billing so missed her last appointment. she has been doing well with botox.Her headaches decreased to 0-1/month for 3 mths after botox. ??? Most frequent reported adverse reactions following injection of botox for chronic migraine include neck pain (9%), headache(5%), eyelid ptosis(4%), migraine(4%), muscular weakness(4%), musculuskeletal stiffness(4%), bronchitis(3%), injection site pain (3%), musculoskeletal pain(3%), myalgia(3%), facial paresis(2%), HTN(2%) and muscle spasms(2%) were discussed in detail. ??? Botulinum toxin typeA 200units Lot no [id number] expiration Dec 2026 was diluted with 4 cc of normal saline . ??? Muscles injected- ??? Frontalis 4 sites ??? Procerus 1 site ??? Men'S Furnishings Salesperson- 2 sites ??? Temporalis- 8 sites ??? Occipitalis- 6 sites ??? Cervical paraspinals- 4 sites ??? Trapezius- 6 sites- 10 units each units each Right Masseter 15 units ??? 5 units each in 31 site ??? Total use- 200units ??? PFSH Medical History POTS (postural orthostatic tachycardia syndrome) Port-A-Cath in place Surgical History No pertinent past surgical history Social History Alcohol intake: never Patient Tobacco Use Status: Never used Tobacco Physical Exam Vital Signs: Last Vital Signs Pulse 88 10/26/24 08:10 BP 110/62 10/26/24 08:10 Pulse Ox 99 10/26/24 08:10 Oxygen Delivery Method Room Air 10/26/24 08:10 BMI result Body Mass Index 25.3 Const General: cooperative and no acute distress Orientation/consciousness: patient oriented x3 Neuro General: patient oriented x3 Cognition (Neuro): normal cognition Psych Appearance: grossly normal Mental Status: mental status grossly normal Speech and movement: Normal speech and movement present Affect: normal affect Attitude: cooperative Office Procedures Botulinum toxin Injection 92080 - Migraine Procedure code (CPT) selection complete Office Meds onabotulinumtoxinA 200 unit solution for injection Performing Provider: Marquita Dumas MD [place] [facility] Administered by: Marquita Dumas MD on 10/26/24 08:47 Dose Route Admin Location Dispensed Lot Number Expiration Date [facility][NOTE 3] Lpn Instructor 200 unit subcut 200 units [id number] ALLERGAN/BOTOX Total Dispensed Waste 200 units 0 % Comments: see hpi Assessment & Plan Assessment & Plan (1) Chronic migraine without aura, not intractable, without status migrainosus: Code(s): G43.709 - Chronic migraine without aura, not intractable, without status migrainosus Category: Medical (2) Episodic tension-type headache, not intractable: Code(s): G44.219 - Episodic tension-type headache, not intractable Category: Medical (3) Orthostatic hypotension: Code(s): I95.1 - Orthostatic hypotension Category: Medical (4) Migraine with aura, intractable, without status migrainosus: Code(s): G43.119 - Migraine with aura, intractable, without status migrainosus Category: Medical Plan Patient tolerated the procedure well she will call back with any side effects nurtec 75mg as needed for migraine. Orders: Orders AMB Botulinum toxin Injection Today G43.709 - Chronic migraine without aura, not intractable, without status migrainosus Coding Level of Care Code Est Pt Level 1 (84557) Diagnoses Chronic migraine without aura, not intractable, without status migrainosus G43.709 Episodic tension-type headache, not intractable G44.219 Orthostatic hypotension I95.1 Migraine with aura, intractable, without status migrainosus G43.119 CPT Codes Botox Injection - Botox 3: 43469 - Migraine ([id number])
== END 2024-10-26 08:41 | disposition home or self-care (01) ==
LOC: HO.HSMS 07:59
PROVIDERS: PCP Internal Medicine; Visit Provider Psychiatry & Neurology Neurology
DX: G43.709 Chronic migraine without aura, not intractable, without status migrainosus (principal)
CPT/HCPCS: 64615

== ENCOUNTER → 2024-10-26 07:59 | Outpatient (BNVA) | payer OTHER, SELFPAY | PROVIDERS: PCP Internal Medicine; Visit Provider Psychiatry & Neurology Neurology | DX: G43.709 Chronic migraine without aura, not intractable, without status migrainosus (principal); G44.219 Episodic tension-type headache, not intractable; I95.1 Orthostatic hypotension | CPT/HCPCS: 64615; 99211; J0585 ==